=== PATIENT | male | born 1975 | race Caucasian/White ===

== ENCOUNTER 2019-08-11 07:05 | Emergency (ER) | payer BC ==
[2019-08-11] MEDS ORDERED: HYDROMORPHONE HCL INJ/PF 2 MG/ML AMPULE IM ONE ×2 (08:43→09:59)
[2019-08-11] MEDS ORDERED: ACETAMINOPHEN 325 MG TABLET PO ONE (08:43)
--- NOTE | 2019-08-11 08:43 | ER Document Report ---
HPI - HPI Time Seen by Provider: 08/11/19 08:07 Pain Level: 3 Notes: Patient is a 43-year-old male with a history of hypertension, GERD, CKD, depression, right below-knee amputation who presents complaining of right-sided chest pain and right shoulder pain that is described as moderate to severe and started earlier this morning around 3 AM. Patient does not recall any injury. He has not noticed any rash. Patient states that the pain does not radiate, but is significantly worsened when he pushes on his chest and when he is trying to move it. Patient states that he has no significant worsening pain at rest. Patient describes the reproduction as the exact same or worse when he is moving and pushing on it. Denies drug allergies. Denies any headache, fever, neck pain, URI, sore throat, palpitations, syncope, cough, shortness of breath, wheeze, dyspnea, abdominal pain, nausea/vomiting/diarrhea, urinary retention, dysuria, hematuria, loss of control of bowel or bladder, numbness/tingling, saddle anesthesia, muscle paralysis/weakness, or rash. No h/o CVA, TIA, DE, PE, DVT, DM, CAD. - ROS Systems Reviewed and Negative: Yes All other systems reviewed and negative - MUSCULOSKELETAL Musculoskeletal: REPORTS: Extremity pain Past Medical History - Social History Smoking Status: Never Smoker Family History: Reviewed & Not Pertinent Patient has suicidal ideation: No Patient has homicidal ideation: No - Past Medical History Cardiac Medical History: Reports: Hx Hypercholesterolemia GI Medical History: Reports: Hx Gastroesophageal Reflux Disease Past Surgical History: Reports: Hx Orthopedic Surgery - Right AKA Vertical Provider Document - CONSTITUTIONAL Agree With Documented VS: Yes Notes: PHYSICAL EXAMINATION: GENERAL: Well-appearing, well-nourished and in no acute distress. HEAD: Atraumatic, normocephalic. EYES: Pupils equal round and reactive to light, extraocular movements intact, sclera anicteric, conjunctiva are normal. ENT: Nares patent and without discharge. oropharynx clear without exudates. No tonsilar hypertrophy or erythema. Moist mucous membranes. NECK: Normal range of motion, supple without lymphadenopathy Chest: + reproducible tenderness to palpation of the rt pectoral area and reproducible with arm extension/abduction. LUNGS: Breath sounds clear to auscultation bilaterally and equal. No wheezes rales or rhonchi. HEART: Regular rate and rhythm without murmurs, rubs, gallops. ABDOMEN: Soft, nontender, nondistended abdomen. No guarding, no rebound. No masses appreciated. Normal bowel sounds present. No CVA tenderness bilaterally. Musculoskeletal: Rt shoulder: LROM due to pain. N/V intact distal. + tenderness to the soft tissue and significantly to palp of the rt trapezius muscle with noted trigger point/spasm. Ext's otherwise: (noted Rt BKA), FROM to passive/active. Strength 5+/5. Malka neg. No asymmetry to LE's. Extremities: No cyanosis, clubbing, or edema b/l. Peripheral pulses 2+. Capillary refill less than 3 seconds. NEUROLOGICAL: Normal speech, normal gait. PSYCH: Normal mood, normal affect. SKIN: Warm, Dry, normal turgor, no rashes or lesions noted. Course - Re-evaluation Re-evalutation: 08/11/19 08:44 Dr. Castellon also eval'd the patient and agrees with soft tissue likely. We will obtain CXR/EKG and shoulder XR. We will give him pain medicine. No further work up if everything is unremarkable. Pt in agreement. 08/11/19 09:59 Patient is an afebrile, well-hydrated, 43-year-old male who presents to the ED with right shoulder and right chest wall pain, suspect musculoskeletal/inflammatory. Vitals are acceptable without any significant tachycardia, tachypnea, or hypoxia. PE is otherwise unremarkable for any neurovascular compromise, obvious tendon/ligament rupture, obvious fracture/d islocation, septic joint. EKG and X-rays unremarkable for any acute pathology. Pt was given pain medicine here. Patient is nontoxic-appearing. No other labs or imaging warranted at this time based on H&P. Conservative measures otherwise for symptoms. Recheck with your PCM in 3-5 days. Consider consult orthopedics. Return to the ED with any worsening/concerning symptoms otherwise as reviewed in discharge. Patient is in agreement. - Vital Signs Vital signs: Temp Pulse Resp BP Pulse Ox 98.0 F 101 H 19 142/71 H 94 08/11/19 07:22 08/11/19 07:22 08/11/19 07:22 08/11/19 07:22 08/11/19 07:22 Discharge - Discharge Clinical Impression: Chest wall pain Right shoulder pain Qualifiers: Chronicity: acute Qualified Code(s): M25.511 - Pain in right shoulder Condition: Stable Disposition: HOME, SELF-CARE Instructions: Chest Wall Pain ([facility]) Additional Instructions: Rest, Ice, Compression, Elevation Tylenol/ibuprofen as needed Light stretches daily Strength exercises as able Moist heat and massage may help F/u with your PCP in 3-5 days for a recheck Consider consult(s) with Orthopedics/physical therapy for ongoing/worsening symptoms Return to the ED with any worsening symptoms and/or development of fever, headache, chest pain, palpitations, syncope, shortness of breath, trouble breathing, abdominal pain, n/v/d, muscle weakness/paralysis, numbness/tingling, swelling, redness, or other worsening symptoms that are concerning to you. Prescriptions: Prednisone [Deltasone 10 mg Tablet] 10 mg PO DAILY #18 tablet Lidocaine [Lidoderm 5% (700 mg) Transdermal Patch] 1 patch TP DAILY #10 adh..patch Methocarbamol [Robaxin 750 mg Tablet] 750 mg PO TID PRN #10 tablet PRN Reason: Forms: Elevated Blood Pressure Referrals: [facility] [Provider Group] - Follow up as needed
--- NOTE | 2019-08-11 09:17 | RADIOLOGY REPORT (SQ) ---
EXAM DESCRIPTION: SHOULDER RIGHT 2 OR MORE VIEWS COMPLETED DATE/TIME: 08/11/2019 9:01 am REASON FOR STUDY: Rt shoulder pain COMPARISON: None. NUMBER OF VIEWS: Three views. TECHNIQUE: Internal rotation, external rotation, and Y view images acquired of the right shoulder. LIMITATIONS: None. FINDINGS: MINERALIZATION: Normal. BONES: No acute fracture. No worrisome bone lesions. JOINTS: No dislocation. Mild acromioclavicular osteoarthropathy with mild osteophytosis. VISUALIZED LUNGS AND RIBS: No pneumothorax. No rib fracture. SOFT TISSUES: No radiopaque foreign body. OTHER: No other significant finding. IMPRESSION: No acute bony abnormality. Mild acromioclavicular osteoarthropathy. TECHNICAL DOCUMENTATION: JOB ID: [id number] [employer]- All Rights Reserved Reading location - IP/workstation name: [email or web address]
--- NOTE | 2019-08-11 09:22 | RADIOLOGY REPORT (SQ) ---
EXAM DESCRIPTION: CHEST 2 VIEWS COMPLETED DATE/TIME: 08/11/2019 9:01 am REASON FOR STUDY: rt chest wall pain COMPARISON: None. EXAM PARAMETERS: NUMBER OF VIEWS: two views TECHNIQUE: Digital Frontal and Lateral radiographic views of the chest acquired. RADIATION DOSE: NA LIMITATIONS: none FINDINGS: LUNGS AND PLEURA: No opacities, masses or pneumothorax. No pleural effusion. Elevation of the left hemidiaphragm. MEDIASTINUM AND HILAR STRUCTURES: No masses or contour abnormalities. HEART AND VASCULAR STRUCTURES: Apparent dextrocardia. Enlarged cardiac silhouette BONES: No acute findings. HARDWARE: None in the chest. OTHER: No other significant finding. IMPRESSION: No evidence of acute cardiopulmonary process. Enlarged cardiac silhouette with apparent dextrocardia. TECHNICAL DOCUMENTATION: JOB ID: [id number] [employer]- All Rights Reserved Reading location - IP/workstation name: [email or web address]
[2019-08-11] MEDS ORDERED: LIDOCAINE 5% (700 MG) TRANSDERMAL ADH..PATCH TP ONE (09:58)
[2019-08-11] MEDS ORDERED: METHOCARBAMOL 750 MG TABLET PO ONE (09:58)
[2019-08-11 10:56] VITALS: BP 150/89
--- NOTE | 2019-08-11 12:14 | EKG REPORT ---
SEVERITY:- OTHERWISE NORMAL ECG - SINUS TACHYCARDIA : Confirmed by: Luis Valerio MD 11-Aug-2019 12:13:16
== END 2019-08-11 10:56 | disposition home or self-care (01) ==
LOC: EDSEX → ER 07:05
DX: R07.89 Other chest pain (principal); M25.511 Pain in right shoulder; I10 Essential (primary) hypertension
CPT/HCPCS: 93005; 71046; 73030; 93010; J3490; J1170; 96372; 99284